=== PATIENT | female | born 1935 | race Caucasian/White ===

== ENCOUNTER 2018-08-25 01:37 | Emergency (ER) | payer OTHER ==
[~2018-08-25] VITALS: Ht 157.5 cm; Wt 70.3 kg
[~2018-08-25 01:37] MED LIST: ALENDRONATE SOD70 M2 PO; AMLODIPINE5 M1 PO; ANTIVERT/2525 MG PO; BENTYL10 MG PO; CALCIUM 500 W/V1 TAB PO; CETIRIZINE10 M1 PO; CLARITIN-D 24 H1 T24 PO; CLOTRIMAZOLE1%; DICYCLOMINE HCL10 MG PO; HIBICLENS118 ML TOP; KEFLEX500 MG PO; LORATADINE10 MG PO; MUPIROCIN2% TOP; MYCC TOP; PRILOSEC40 MG PO; PROMETHAZI6.25 MG/5; PROVENTIL0.09 MG/A1 INH; REG50I PO; SIMVASTATIN20 M1 PO; SINGULAIR10 MG PO; ST. JOSEPH81 MG PO; VITAMIN D31000 I2; ZESTRIL20 MG
[2018-08-25 01:40] VITALS: Ht 157.5 cm; Wt 70.3 kg
[2018-08-25 02:13] LABS: microscopic required? NO
[2018-08-25 02:22] LABS: BASOPHIL % 1.2 % (0-2); PLATELET COUNT 241 x10^3mcL (130-400); RED CELL DISTRIBUTION WIDTH 12.9 % (11.5-14.5)
[2018-08-25 02:28] LABS: urine erythrocyte NEGATIVE (NEGATIVE)
[2018-08-25 02:56] LABS: CALCIUM 9.2 mg/dL (8.5-10.1); CARBON DIOXIDE 26.4 mmol/L (21-32); CHLORIDE SERUM 102 mmol/L (98-107); CREATININE SERUM 0.9 mg/dL (0.6-1.0); GLUCOSE SERUM 111 mg/dL (74-106); POTASSIUM SERUM 3.5 mmol/L (3.5-5.1); SODIUM SERUM 137 mmol/L (136-145)
[2018-08-25 03:01] LABS: ALBUMIN 3.7 g/dL (3.4-5.0); ALKALINE PHOSPHATASE 63 U/L (46-116); ALT/SGPT 34 U/L (14-59); AST/SGOT 25 U/L (15-37); BILIRUBIN TOTAL 0.5 mg/dL (0.20-1.00); LIPASE 95 IU/L (73-393); TOTAL PROTEIN, SERUM 7.8 g/dL (6.4-8.2)
[2018-08-25 06:42] VITALS: BP 117/85
== END 2018-08-25 06:42 | disposition home or self-care (01) ==
LOC: ED 01:37
PROVIDERS: Emergency Medicine
DX: R10.9 Unspecified abdominal pain (principal); J45.909 Unspecified asthma, uncomplicated; E78.00 Pure hypercholesterolemia, unspecified; Z88.5 Allergy status to narcotic agent
CPT/HCPCS: J1885; J2405; Q0092

== ENCOUNTER 2018-08-27 08:58 | Inpatient (IN) | payer OTHER ==
[~2018-08-27] VITALS: Ht 160 cm; Wt 68.2 kg
[~2018-08-27 08:58] MED LIST changes: -AMLODIPINE5 M1 PO; +MASON NATURAL1000 IU; +NOR5 PO; +ST. JOSEPH ASPI81 MG; -ST. JOSEPH81 MG PO; -VITAMIN D31000 I2
[2018-08-27 09:02] VITALS: Ht 160 cm; Wt 68.2 kg
[2018-08-27 10:16] LABS: CALCIUM 8.5 mg/dL (8.5-10.1); CARBON DIOXIDE 31.2 mmol/L (21-32); CHLORIDE SERUM 109 mmol/L (98-107); GLUCOSE SERUM 106 mg/dL (74-106); POTASSIUM SERUM 4.2 mmol/L (3.5-5.1); SODIUM SERUM 145 mmol/L (136-145)
[2018-08-27 10:20] LABS: ALBUMIN 3.5 g/dL (3.4-5.0); ALKALINE PHOSPHATASE 65 U/L (46-116); ALT/SGPT 31 U/L (14-59); AST/SGOT 20 U/L (15-37); BILIRUBIN TOTAL 0.46 mg/dL (0.20-1.00); LIPASE 91 IU/L (73-393); TOTAL PROTEIN, SERUM 7.3 g/dL (6.4-8.2)
[2018-08-27 10:24] LABS: BASOPHIL % 0.7 % (0-2); PLATELET COUNT 240 x10^3mcL (130-400)
[2018-08-27 14:15] VITALS: BP 184/73
[2018-08-27 21:38] VITALS: BP 115/56
[2018-08-28 05:46] VITALS: BP 126/54
[2018-08-28 06:41] LABS: BASOPHIL % 0.7 % (0-2); PLATELET COUNT 220 x10^3mcL (130-400); RED CELL DISTRIBUTION WIDTH 13.7 % (11.5-14.5)
[2018-08-28 07:14] LABS: ALKALINE PHOSPHATASE 63 U/L (46-116); ALT/SGPT 30 U/L (14-59); AMYLASE 49 U/L (25-115); AST/SGOT 16 U/L (15-37); BILIRUBIN TOTAL 0.33 mg/dL (0.20-1.00); CALCIUM 8.7 mg/dL (8.5-10.1); CARBON DIOXIDE 31.5 mmol/L (21-32); CHLORIDE SERUM 110 mmol/L (98-107); GLUCOSE SERUM 116 mg/dL (74-106); LIPASE 81 IU/L (73-393); POTASSIUM SERUM 4.1 mmol/L (3.5-5.1); SODIUM SERUM 147 mmol/L (136-145)
[2018-08-28 07:17] LABS: ALBUMIN 3.3 g/dL (3.4-5.0)
[2018-08-28 08:43] VITALS: BP 167/74
[2018-08-28 11:06] VITALS: BP 136/69
[2018-08-28 17:39] VITALS: BP 144/69
[2018-08-29 05:27] VITALS: BP 134/58
[2018-08-29 06:32] LABS: BASOPHIL % 0.3 % (0-2); PLATELET COUNT 207 x10^3mcL (130-400); RED CELL DISTRIBUTION WIDTH 14.3 % (11.5-14.5)
[2018-08-29 06:44] LABS: CALCIUM 8.4 mg/dL (8.5-10.1); CARBON DIOXIDE 32.8 mmol/L (21-32); CHLORIDE SERUM 107 mmol/L (98-107); CREATININE SERUM 0.9 mg/dL (0.6-1.0); GLUCOSE SERUM 103 mg/dL (74-106); SODIUM SERUM 145 mmol/L (136-145)
[2018-08-29 09:01] VITALS: BP 120/40
[2018-08-29 13:01] VITALS: BP 120/40
== END 2018-08-29 13:45 | disposition home or self-care (01) | DRG 394 ==
LOC: ED 08:58 → MU 13:42
PROVIDERS: Emergency Medicine; Internal Medicine; Internal Medicine Pulmonary Disease
PROC: 0DB68ZX Excision of Stomach, Via Natural or Artificial Opening Endoscopic, Diagnostic (ICD-10-PCS; principal; 2018-08-28 09:00)
PROC: 0DBL8ZX Excision of Transverse Colon, Via Natural or Artificial Opening Endoscopic, Diagnostic (ICD-10-PCS; 2018-08-29)
DX: K55.9 Vascular disorder of intestine, unspecified (principal); K22.10 Ulcer of esophagus without bleeding; K29.70 Gastritis, unspecified, without bleeding; I10 Essential (primary) hypertension; I49.8 Other specified cardiac arrhythmias; E78.00 Pure hypercholesterolemia, unspecified; K57.30 Diverticulosis of large intestine without perforation or abscess without bleeding; J45.909 Unspecified asthma, uncomplicated; Z95.0 Presence of cardiac pacemaker; Z88.5 Allergy status to narcotic agent; Z90.49 Acquired absence of other specified parts of digestive tract
CPT/HCPCS: 43235; 45378; J1200; J1610; J1885; J2250; J2310; J2405; J3010; J3490; J7030; Q9967

== ENCOUNTER 2018-11-16 14:05 | Emergency (ER) | payer OTHER ==
[~2018-11-16] VITALS: Ht 165.1 cm; Wt 66.7 kg
[2018-11-16 14:12] VITALS: Ht 165.1 cm; Wt 66.7 kg
[2018-11-16 15:23] LABS: PLATELET COUNT 235 x10^3mcL (130-400); RED CELL DISTRIBUTION WIDTH 13.7 % (11.5-14.5)
[2018-11-16 15:47] LABS: CALCIUM 8.9 mg/dL (8.5-10.1); CHLORIDE SERUM 103 mmol/L (98-107); CREATININE SERUM 0.8 mg/dL (0.6-1.0); GLUCOSE SERUM 126 mg/dL (74-106); POTASSIUM SERUM 3.9 mmol/L (3.5-5.1); SODIUM SERUM 139 mmol/L (136-145)
[2018-11-16 15:51] LABS: ALBUMIN 3.4 g/dL (3.4-5.0); ALKALINE PHOSPHATASE 66 U/L (46-116); ALT/SGPT 24 U/L (14-59); AST/SGOT 25 U/L (15-37); BILIRUBIN TOTAL 0.43 mg/dL (0.20-1.00); CHOLESTEROL 135 mg/dL (<200); MAGNESIUM 2.2 mg/dL (1.8-2.4); TOTAL PROTEIN, SERUM 7.6 g/dL (6.4-8.2)
[2018-11-16 16:05] LABS: HDL CHOLESTEROL 64 mg/dL (40-60)
[2018-11-16 18:16] VITALS: BP 138/82
== END 2018-11-16 18:16 | disposition home or self-care (01) ==
LOC: ED 14:05
PROVIDERS: Emergency Medicine
DX: G43.909 Migraine, unspecified, not intractable, without status migrainosus (principal); I10 Essential (primary) hypertension; R42 Dizziness and giddiness; E78.00 Pure hypercholesterolemia, unspecified; Z88.5 Allergy status to narcotic agent
CPT/HCPCS: J1200; J2765; J7040; Q0092